=== PATIENT | male | born 1955 | race Caucasian/White ===

== ENCOUNTER 2017-02-08 15:19 | Observation (INO) ==
[2017-02-08] MEDS ORDERED: 0.9 % Sodium Chloride 1,000 ML IVC ONE (15:30)
[2017-02-08] MEDS ORDERED: Ipratropium/Albuterol Neb 3 ML IH ONE (15:30)
--- NOTE | 2017-02-08 15:37 | Emergency Department Note ---
Disposition Clinical Impression: Pneumonia Qualifiers: Pneumonia type: due to unspecified organism Laterality: right Lung location: lower lobe of lung Qualified Code(s): J18.1 - Lobar pneumonia, unspecified organism Disposition: Admitted As Inpatient Condition: Good Referrals: Lois Lindsay CNP [Primary Care Provider] - Forms: ED Satisfaction Letter Time of Disposition: 16:36 SOB HPI - General Chief Complaint: ED Shortness of Breath/Dyspnea Stated Complaint: SOB/ racing heart Source: EMS - History of Present Illness Patient presents today for evaluation of worsening shortness of breath and fever. Patient reports possible aspiration of a kernel of corn approximately one half weeks ago. He has been having increasing cough and shortness of breath since this incident. He was seen last night, had a CT which showed right lower lobe pneumonia. He was sent home on antibiotics and steroids. He presents today secondary to worsening shortness of breath with associated fever. Denies any pain. Denies any other associated symptoms or complaints. - Related Data Home Medications Medication Instructions Recorded Confirmed Aspirin [Adult Low Dose Aspirin EC] 81 mg PO DAILY 08/22/15 02/08/17 Lisinopril [Zestril] 40 mg PO DAILY 08/22/15 02/08/17 Magnesium Oxide [Magnesium] 400 mg PO DAILY 08/22/15 02/08/17 Meloxicam [Mobic] 15 mg PO DAILY 08/22/15 02/08/17 Metoprolol [Lopressor] 25 mg PO DAILY 08/22/15 02/08/17 Montelukast [Singulair] 10 mg PO DAILY 08/22/15 02/08/17 [place]-3/Dha/Epa/Fish Oil [Fish Oil] 1,000 mg PO DAILY 08/22/15 02/08/17 Omeprazole [PriLOSEC] 40 mg PO DAILY 08/22/15 02/08/17 Potassium Chloride [K-Tab ER] 10 meq PO BID 08/22/15 02/08/17 Simethicone [Gas-X] 80 mg PO TID 08/22/15 02/08/17 Tizanidine HCl [Zanaflex] 2 mg PO TID PRN 08/22/15 02/08/17 Zolpidem [Ambien] 10 mg PO HS 08/22/15 02/08/17 metFORMIN [Glucophage] 500 mg PO BIDWM 08/22/15 02/08/17 Albuterol Sulfate [Ventolin Hfa] 2 puff IH Q6H PRN 07/27/16 02/08/17 Bupropion HCl [Wellbutrin Xl] 300 mg PO DAILY 07/27/16 02/08/17 Butalbital/Aspirin/Caffeine 1 each PO Q6H PRN 11/25/16 02/08/17 [Fiorinal 50-325-40 mg Capsule] Cholecalciferol (Vitamin D3) 2,000 unit PO DAILY 11/25/16 02/08/17 [Vitamin D3] Gemfibrozil [Lopid] 600 mg PO BIDWM 11/25/16 02/08/17 Mometasone/Formoterol [Dulera 200 2 puff IH BID 11/25/16 02/08/17 Mcg/5 Mcg Inhaler] Oxycodone HCl/Acetaminophen 1 each PO Q6H PRN 11/25/16 02/08/17 [Percocet 7.5-325 mg Tablet] Oxygen 1 each .ROUTE AD 11/25/16 02/08/17 hydroCHLOROthiazide 25 mg PO DAILY 02/07/17 02/08/17 [Hydrochlorothiazide] Previous Rx's Medication Instructions Recorded Cyclobenzaprine [Flexeril] 10 mg PO TID #15 tablet 11/23/15 Albuterol Sulfate [Albuterol 2 puff IH Q6H #1 puff 02/07/17 Inhaler] PredniSONE [Deltasone] 40 mg PO DAILY #10 tablet 02/07/17 levoFLOXacin [Levaquin] 500 mg PO DAILY #7 tablet 02/07/17 Allergies Allergy/AdvReac Type Severity Reaction Status Date / Time No Known Allergies Allergy Verified 02/07/17 13:03 Constitutional: Reports: fever, chills ENT ED: Denies: congestion, dysphagia Cardiovascular: Denies: chest pain, syncope Respiratory: Reports: cough, dyspnea Gastrointestinal: Denies: abdominal pain, nausea, vomiting, diarrhea Musculoskeletal: Denies: back pain, neck pain Integumentary: Denies: rash Neurological: Denies: headache, weakness, numbness, paresthesias, confusion, abnormal gait Endocrine: Denies: fatigue Hematological/Lymphatic: Denies: lymphadenopathy Past Medical History - Past Medical History Source: patient Medical history: Reports: asthma, COPD, diabetes, GERD, hyperlipidemia, hypertension, other Surgical history: Reports: non-contributory Psychiatric history: Reports: no psych history - Social History Smoking Status: Former smoker Smokeless Tobacco Status: No Alcohol use: Reports: none Drug use: Reports: none Physical Exam - General Limitations: no limitations General appearance: alert, in no apparent distress - Head Head exam: atraumatic, normocephalic, normal inspection - Eye Eye exam: Present: normal appearance, PERRL, EOMI. Absent: scleral icterus - ENT ENT exam: normal exam, normal oropharynx, mucous membranes moist - Respiratory Respiratory exam: Present: other (Rhonchi right base). Absent: respiratory distress, wheezes, accessory muscle use, prolonged expiratory phase - Cardiovascular Cardiovascular exam: Present: regular rate, normal rhythm, normal heart sounds - Abdominal Exam Abdominal exam: Present: soft, Non-Tender, normal bowel sounds. Absent: tenderness, distention, guarding, rebound, rigidity - Extremities Exam Extremities exam: Present: normal inspection, full ROM. Absent: tenderness, pedal edema, calf tenderness - Expanded Lower Extremity Exam Neurovascular/Tendon exam: Present: normal capillary refill - Neurological Exam Neurological exam: Present: alert, oriented X3, CN II-XII intact - Psychiatric Psychiatric exam: Present: normal affect, normal mood - Skin Skin exam: Present: warm, dry, intact, normal color Course Vital Signs Temperature 101.8 F H 02/08/17 15:25 Pulse Rate 107 02/08/17 15:25 Respiratory Rate 15 02/08/17 15:25 Blood Pressure 161/85 02/08/17 15:25 O2 Sat by Pulse Oximetry 93 02/08/17 15:25 Temperature 101.7 F H 02/08/17 16:07 Pulse Rate 110 02/08/17 16:05 Respiratory Rate 20 02/08/17 16:05 Blood Pressure 138/54 02/08/17 16:07 O2 Sat by Pulse Oximetry 97 02/08/17 16:05 Oxygen Delivery Oxygen Delivery Nasal Cannula Shortness of Breath/Dyspnea - Medical Records Medical records reviewed: Yes I reviewed the patient's medical records. Patient will be admitted to the hospitalist service for ongoing evaluation and treatment of presumed aspiration pneumonia failed outpatient treatment - Lab Data Lab results reviewed: Yes I reviewed the patient's lab results. Result diagrams: 02/08/17 15:55 02/08/17 15:55 Lab Results 02/08/17 02/08/17 02/08/17 Range/Units 15:55 15:55 15:55 WBC 12.9 H (4.3-11.1) K/mcL RBC 4.01 L (4.19-5.50) M/mcL Hgb 12.6 L (12.9-16.9) g/dL Hct 37.1 L (37.5-50.1) % MCV 92.5 (83.0-100.0) fL MCH 31.4 (28.0-33.3) pg MCHC 34.0 (31.6-35.5) g/dL RDW 11.9 (11.5-14.5) % Plt Count 341 (140-400) K/mcL MPV 9.6 (9.4-12.4) fL Immature Gran % 0.5 (0-4) % Seg Neutrophils % 86.9 % Lymphocytes % 5.6 % Monocytes % 6.7 % Eosinophils % 0.1 % Basophils % 0.2 % Neutrophils # 11.2 H (1.6-8.9) K/mcL Lymphocytes # 0.7 (0.6-4.6) K/mcL Monocytes # 0.9 (0.0-1.3) K/mcL Eosinophils # 0.0 (0.0-0.6) K/mcL Basophils # 0.0 (0.0-0.2) K/mcL VBG Lactic Acid (0.5-2.2) mmol/L Sodium 137 (136-145) mEq/L Potassium 3.9 (3.5-4.5) mEq/L Chloride 102 (98-109) mEq/L Carbon Dioxide 24 (19-29) mEq/L BUN 15 (8-26) mg/dL Creatinine 1.05 (0.72-1.25) mg/dL Est GFR ( Amer) > 60 (> 60) Est GFR (Non-Af Amer) > 60 (> 60) BUN/Creatinine Ratio 14 (6-26) Glucose 128 H (70-99) mg/dL Calculated Osmolality 286 (280-300) Calcium 9.5 (8.6-10.8) mg/dL Total Bilirubin 0.5 (0.2-1.2) mg/dL Direct Bilirubin 0.2 (0.0-0.5) mg/dL Indirect Bilirubin 0.3 (0.0-1.2) mg/dL AST 14 (5-34) Units/L ALT 16 (0-55) Units/L Alkaline Phosphatase 57 (38-126) Units/L Troponin I 0.00 (0-0.03) ng/mL Serum Total Protein 7.5 (6.0-8.3) g/dL Albumin 3.4 L (3.5-5.0) g/dL Globulin 4.1 H (2.4-3.5) g/dL Albumin/Globulin Ratio 0.8 L (1.1-2.2) 02/08/17 Range/Units 15:55 WBC (4.3-11.1) K/mcL RBC (4.19-5.50) M/mcL Hgb (12.9-16.9) g/dL Hct (37.5-50.1) % MCV (83.0-100.0) fL MCH (28.0-33.3) pg MCHC (31.6-35.5) g/dL RDW (11.5-14.5) % Plt Count (140-400) K/mcL MPV (9.4-12.4) fL Immature Gran % (0-4) % Seg Neutrophils % % Lymphocytes % % Monocytes % % Eosinophils % % Basophils % % Neutrophils # (1.6-8.9) K/mcL Lymphocytes # (0.6-4.6) K/mcL Monocytes # (0.0-1.3) K/mcL Eosinophils # (0.0-0.6) K/mcL Basophils # (0.0-0.2) K/mcL VBG Lactic Acid 1.1 (0.5-2.2) mmol/L Sodium (136-145) mEq/L Potassium (3.5-4.5) mEq/L Chloride (98-109) mEq/L Carbon Dioxide (19-29) mEq/L BUN (8-26) mg/dL Creatinine (0.72-1.25) mg/dL Est GFR ( Amer) (> 60) Est GFR (Non-Af Amer) (> 60) BUN/Creatinine Ratio (6-26) Glucose (70-99) mg/dL Calculated Osmolality (280-300) Calcium (8.6-10.8) mg/dL Total Bilirubin (0.2-1.2) mg/dL Direct Bilirubin (0.0-0.5) mg/dL Indirect Bilirubin (0.0-1.2) mg/dL AST (5-34) Units/L ALT (0-55) Units/L Alkaline Phosphatase (38-126) Units/L Troponin I (0-0.03) ng/mL Serum Total Protein (6.0-8.3) g/dL Albumin (3.5-5.0) g/dL Globulin (2.4-3.5) g/dL Albumin/Globulin Ratio (1.1-2.2) ITS Impressions Chest X-Ray 02/08/17 15:30 IMPRESSION: No acute process. D/ / Francis Longoria MD / Francis Longoria MD Interpreting Provider: Francis Longoria MD - Radiology Data Radiology results reviewed: Yes I reviewed the patient's radiology results. - EKG Data EKG attestation: Yes I reviewed and interpreted this EKG. EKG shows normal: Reports: sinus rhythm Rate: Reports: tachycardia (Sinus tachycardia at a rate of 109. No acute ST segment or T-wave changes)
[2017-02-08 16:03] LABS: Basophils % 0.2 %; Eosinophils % 0.1 %; Hematocrit 37.1 % (37.5-50.1); Hemoglobin 12.6 g/dL (12.9-16.9); Immature Granulocytes % 0.5 % (0-4); Lymphocytes # 0.7 K/mcL (0.6-4.6); Lymphocytes % 5.6 %; Mean Corpuscular Hemoglobin 31.4 pg (28.0-33.3); Mean Corpuscular Volume 92.5 fL (83.0-100.0); Mean Platelet Volume 9.6 fL (9.4-12.4); Monocytes # 0.9 K/mcL (0.0-1.3); Monocytes % 6.7 %; Neutrophils # 11.2 K/mcL (1.6-8.9); Platelet Count 341 K/mcL (140-400); Red Blood Count 4.01 M/mcL (4.19-5.50); Red Cell Distribution Width 11.9 % (11.5-14.5); Segmented Neutrophils % 86.9 %
[2017-02-08 16:22] LABS: Alanine Aminotransferase 16 Units/L (0-55); Albumin 3.4 g/dL (3.5-5.0); Albumin/Globulin Ratio 0.8 (1.1-2.2); Alkaline Phosphatase 57 Units/L (38-126); Aspartate Amino Transferase 14 Units/L (5-34); BUN/Creatinine Ratio 14 (6-26); Bilirubin,Direct 0.2 mg/dL (0.0-0.5); Bilirubin,Indirect 0.3 mg/dL (0.0-1.2); Bilirubin,Total 0.5 mg/dL (0.2-1.2); Blood Urea Nitrogen 15 mg/dL (8-26); Calcium 9.5 mg/dL (8.6-10.8); Carbon Dioxide 24 mEq/L (19-29); Chloride 102 mEq/L (98-109); Globulin 4.1 g/dL (2.4-3.5); Glucose 128 mg/dL (70-99); Osmolality,Calculated 286 (280-300); Potassium 3.9 mEq/L (3.5-4.5); Sodium 137 mEq/L (136-145); Total Protein 7.5 g/dL (6.0-8.3); eGFR For African Americans > 60 (> 60); eGFR For Non-African Americans > 60 (> 60)
[2017-02-08] MEDS ORDERED: Acetaminophen 325 MG TABLET PO PRN (16:37)
[2017-02-08] MEDS ORDERED: Naloxone 0.4 MG/ML INJ IVP PRN (16:37)
[2017-02-08] MEDS ORDERED: *HR* OxyCODONE/APAP 7.5/325 TABLET PO PRN (16:40)
--- NOTE | 2017-02-08 17:40 | Electrocardiograph Report ---
[address] [place], [place] [address] Test Date: 2017-02-08 Pat Name: Tristin Treadwell Department: [id number] Room: [facility] Gender: M Web Master: Jose De Jesus : 1955 Requested By: Anish Barcenas Order Number: [id number] Reading MD: Korina Cook Measurements Intervals [place] Rate: 109 P: 51 MI: 160 QRS: 11 QRSD: 97 T: 45 QT: 312 QTc: 376 Interpretive Statements SINUS TACHYCARDIA ABNORMAL RHYTHM ECG Electronically Signed On 02-08-2017 17:38:22 EDT by Korina Cook
[2017-02-08] MEDS: *HR* Metformin 500 MG TABLET PO SCH (18:34)
[2017-02-09 06:27] LABS: Basophils % 0.4 %; Eosinophils # 0.1 K/mcL (0.0-0.6); Eosinophils % 0.7 %; Hematocrit 35.8 % (37.5-50.1); Hemoglobin 12.1 g/dL (12.9-16.9); Immature Granulocytes % 0.5 % (0-4); Lymphocytes % 20.9 %; Mean Corpuscular HGB Conc 33.8 g/dL (31.6-35.5); Mean Corpuscular Hemoglobin 31.3 pg (28.0-33.3); Mean Corpuscular Volume 92.5 fL (83.0-100.0); Mean Platelet Volume 9.9 fL (9.4-12.4); Monocytes # 1.1 K/mcL (0.0-1.3); Monocytes % 11.3 %; Neutrophils # 6.4 K/mcL (1.6-8.9); Platelet Count 364 K/mcL (140-400); Red Blood Count 3.87 M/mcL (4.19-5.50); Red Cell Distribution Width 12.1 % (11.5-14.5); Segmented Neutrophils % 66.2 %
[2017-02-09 06:28] VITALS: BP 125/75
[2017-02-09 06:43] LABS: BUN/Creatinine Ratio 15 (6-26); Blood Urea Nitrogen 14 mg/dL (8-26); Calcium 9.7 mg/dL (8.6-10.8); Carbon Dioxide 25 mEq/L (19-29); Chloride 104 mEq/L (98-109); Glucose 103 mg/dL (70-99); Osmolality,Calculated 293 (280-300); Potassium 3.4 mEq/L (3.5-4.5); Sodium 141 mEq/L (136-145); eGFR For African Americans > 60 (> 60); eGFR For Non-African Americans > 60 (> 60)
[2017-02-09] MEDS: *HR* Metformin 500 MG TABLET PO SCH (08:32)
[2017-02-09] MEDS ORDERED: hydroCHLOROthiazide 25 MG TABLET PO SCH (09:00)
[2017-02-09] MEDS ORDERED: BuPROPion XL (24 HR) 150 MG TABLET PO SCH (09:00)
[2017-02-09] MEDS ORDERED: Lisinopril 20 MG TABLET PO SCH (09:00)
[2017-02-09] MEDS ORDERED: Aspirin Enteric Coated 81 MG Tablet PO SCH (09:00)
--- NOTE | 2017-02-09 10:07 | Internal Med History&Physical ---
Date of Encounter: 02/09/17 Time of Encounter: 09:30 Assessment and Plan (1) Pneumonia Current visit: Yes Status: Acute Chest CT February 07 showed right lower lobe consolidation. He wishes to be discharged home and I will give him Augmentin and probiotic for 5 days. It was recommended he have repeat chest CT in a few weeks to follow-up on the pneumonia. Qualifiers: Pneumonia type: due to unspecified organism Laterality: right Lung location: lower lobe of lung Qualified Code(s): J18.1 - Lobar pneumonia, unspecified organism (2) Anemia Current visit: Yes Status: Acute He reports daily use of 325 mg aspirin daily. I encouraged him to decrease to 81 mg daily. Qualifiers: Anemia type: unspecified type Qualified Code(s): D64.9 - Anemia, unspecified Internal Medicine - H&P: HPI Chief complaint: Cough and dyspnea Admitted From: Home Plans for Post Hospital Care: Home History of present illness: Mr. Treadwell is a 61 year old male who came to the emergency room stating he had unimproved cough and dyspnea after being treated the evening of February 07 in emergency room and diagnosed with right lower lobe pneumonia. He was found to have a leukocytosis with left shift and it was felt best to admit him to [facility] floor ongoing care needs. He states he got choked eating corn on the cob approximately 10 days earlier. He felt he might have aspirated a particle of corn into his lungs. He has had significant coughing but little productivity since the episode. He denies hemoptysis. His respiratory history is significant for having smoked from age [age] up to 3 packs per day. He has a diagnosis of COPD and wears oxygen at bedtime. He has VESNA and uses CPAP at at bedtime. He states he feels significantly improved now and stable for discharge home. Past Med Surg Social Fam HX - Past Medical History Medical history: asthma, COPD, diabetes, GERD, hyperlipidemia, hypertension, other Psychiatric history: no psych history - Past Surgical History Surgical History: non-contributory - Social History Smoking Status: Former smoker Smokeless Tobacco Status: No Alcohol use: none Drug use: none Internal Medicine - H&P: Meds Aspirin [Adult Low Dose Aspirin EC] 81 mg PO DAILY 08/22/15 [History] Lisinopril [Zestril] 40 mg PO DAILY 08/22/15 [History] Magnesium Oxide [Magnesium] 400 mg PO DAILY 08/22/15 [History] Meloxicam [Mobic] 15 mg PO DAILY 08/22/15 [History] Metoprolol [Lopressor] 25 mg PO DAILY 08/22/15 [History] Montelukast [Singulair] 10 mg PO DAILY 08/22/15 [History] [place]-3/Dha/Epa/Fish Oil [Fish Oil] 1,000 mg PO DAILY 08/22/15 [History] Omeprazole [PriLOSEC] 40 mg PO DAILY 08/22/15 [History] Potassium Chloride [K-Tab ER] 10 meq PO BID 08/22/15 [History] Simethicone [Gas-X] 80 mg PO TID 08/22/15 [History] Tizanidine HCl [Zanaflex] 2 mg PO TID PRN 08/22/15 [History] Zolpidem [Ambien] 10 mg PO HS 08/22/15 [History] metFORMIN [Glucophage] 500 mg PO BIDWM 08/22/15 [History] Cyclobenzaprine [Flexeril] 10 mg PO TID #15 tablet 11/23/15 [Rx] Albuterol Sulfate [Ventolin Hfa] 2 puff IH Q6H PRN 07/27/16 [History] Bupropion HCl [Wellbutrin Xl] 300 mg PO DAILY 07/27/16 [History] Butalbital/Aspirin/Caffeine [Fiorinal 50-325-40 mg Capsule] 1 each PO Q6H PRN [History] Cholecalciferol (Vitamin D3) [Vitamin D3] 2,000 unit PO DAILY 11/25/16 [History] Gemfibrozil [Lopid] 600 mg PO BIDWM 11/25/16 [History] Mometasone/Formoterol [Dulera 200 Mcg/5 Mcg Inhaler] 2 puff IH BID 11/25/16 [ History] Oxycodone HCl/Acetaminophen [Percocet 7.5-325 mg Tablet] 1 each PO Q6H PRN 11/25 [History] Oxygen 1 each .ROUTE AD 11/25/16 [History] Albuterol Sulfate [Albuterol Inhaler] 2 puff IH Q6H #1 puff 02/07/17 [Rx] PredniSONE [Deltasone] 40 mg PO DAILY #10 tablet 02/07/17 [Rx] hydroCHLOROthiazide [Hydrochlorothiazide] 25 mg PO DAILY 02/07/17 [History] levoFLOXacin [Levaquin] 500 mg PO DAILY #7 tablet 02/07/17 [Rx] 3 Allergy/AdvReac Type Severity Reaction Status Date / Time No Known Allergies Allergy Verified 02/07/17 13:03 All Systems PM: A 10-system review of systems was performed and is negative for pertinent findings except as documented above in the HPI. Review of systems: Gen.: He states his weight has been stable past few months Cardiovascular: He has history of hypertension but denies [place] heart failure angina DVT or pulmonary embolus Respiratory: As per history of present illness GI: He has GERD and has been diagnosed with nonalcoholic fatty liver disease. Denies other disorders of his liver gallbladder or exocrine pancreas : He has BPH symptoms with urinary hesitancy. He denies other kidney bladder prostate disorders Neurologic: He denies large distribution strokes or seizures Endocrine: He was diagnosed with DM 2 approximately 2000. He has hyperlipidemia. He denies thyroid disease Hematology/oncology: Denies blood disorders cancers or anemia Psychiatric: He denies anxiety depression or other mental health issues [place] skeletal: He has DJD but denies gout or other bone joint or muscle disorders. - Constitutional Vitals: Temp Pulse Resp BP Pulse Ox 99.1 F 72 18 125/75 96 02/09/17 06:25 02/09/17 06:25 02/09/17 06:25 02/09/17 06:25 02/09/17 06:25 Exam: Gen.: He is well-developed well-nourished male who appears in no acute distress at present time. He had a rare cough during examination HEENT: Head is atraumatic and normocephalic. Eyes: EOMI. There is no scleral icterus. Mouth: Mucosa is moist. Neck: Supple and nontender. There is no thyromegaly or adenopathy noted. Heart: Regular without murmurs gallops or ectopics Lungs: No wheezes crackles or egophony are heard. Abdomen: Soft and nontender. No masses or guarding are noted. Extremities: There is no cyanosis edema or clubbing noted. Dorsalis pedis and posttibial pulses are 1-2 over 2 bilaterally. Neurologic: Mental status: He is talkative and a good historian. Cranial nerves : Smile is symmetric. Forehead wrinkles bilaterally. Tongue protrudes midline. EOMI. Motor: There is no pronator drift. Cerebellar: Finger to nose intact bilaterally. Skin: Warm and dry Internal Med - H&P Results - Labs CBC & Chem 7: 02/09/17 06:02 02/09/17 06:02 Labs: Short CBC 02/09/17 Range/Units 06:02 WBC 9.7 (4.3-11.1) K/mcL Hgb 12.1 L (12.9-16.9) g/dL Hct 35.8 L (37.5-50.1) % Plt Count 364 (140-400) K/mcL Neutrophils # 6.4 (1.6-8.9) K/mcL BMP 02/09/17 06:02 Sodium 141 Potassium 3.4 L Chloride 104 Carbon Dioxide 25 BUN 14 Creatinine 0.92 Glucose 103 H Calcium 9.7
--- NOTE | 2017-02-09 10:25 | Discharge Summary ---
Date of Encounter: 02/09/17 Time of Encounter: 09:30 - Discharge Diagnosis (1) Pneumonia Priority: Primary Status: Acute Qualifiers: Pneumonia type: due to unspecified organism Laterality: right Lung location: lower lobe of lung Qualified Code(s): J18.1 - Lobar pneumonia, unspecified organism (2) Anemia Priority: Secondary Status: Acute Qualifiers: Anemia type: unspecified type Qualified Code(s): D64.9 - Anemia, unspecified - Discharge Medications Prescriptions: Amoxicillin/Clavulanate [Augmentin] 875 mg PO BIDWM #10 tablet Lactobacillus [Culturelle] 1 each PO BID #10 cap.sprink Home Medications: Aspirin [Adult Low Dose Aspirin EC] 81 mg PO DAILY 08/22/15 [History] Lisinopril [Zestril] 40 mg PO DAILY 08/22/15 [History] Magnesium Oxide [Magnesium] 400 mg PO DAILY 08/22/15 [History] Metoprolol [Lopressor] 25 mg PO DAILY 08/22/15 [History] Montelukast [Singulair] 10 mg PO DAILY 08/22/15 [History] [place]-3/Dha/Epa/Fish Oil [Fish Oil Dr 500 mg Softgel] 1,000 mg PO DAILY [History] Omeprazole [PriLOSEC] 40 mg PO DAILY 08/22/15 [History] Potassium Chloride [K-Tab ER] 10 meq PO BID 08/22/15 [History] Simethicone [Gas-X] 80 mg PO TID 08/22/15 [History] Tizanidine HCl [Zanaflex] 2 mg PO TID PRN 08/22/15 [History] Zolpidem [Ambien] 10 mg PO HS 08/22/15 [History] metFORMIN [Glucophage] 500 mg PO BIDWM 08/22/15 [History] Cyclobenzaprine [Flexeril] 10 mg PO TID #15 tablet 11/23/15 [Rx] Albuterol Sulfate [Ventolin Hfa] 2 puff IH Q6H PRN 07/27/16 [History] Bupropion HCl [Wellbutrin Xl] 300 mg PO DAILY 07/27/16 [History] Butalbital/Aspirin/Caffeine [Fiorinal 50-325-40 mg Capsule] 1 each PO Q6H PRN [History] Cholecalciferol (Vitamin D3) [Vitamin D3] 2,000 unit PO DAILY 11/25/16 [History] Gemfibrozil [Lopid] 600 mg PO BIDWM 11/25/16 [History] Mometasone/Formoterol [Dulera 200 Mcg/5 Mcg Inhaler] 2 puff IH BID 11/25/16 [ History] Oxycodone HCl/Acetaminophen [Percocet 7.5-325 mg Tablet] 1 each PO Q6H PRN 11/25 [History] Oxygen 1 each .ROUTE AD 11/25/16 [History] Albuterol Sulfate [Albuterol Inhaler] 2 puff IH Q6H #1 puff 02/07/17 [Rx] hydroCHLOROthiazide [Hydrochlorothiazide] 25 mg PO DAILY 02/07/17 [History] Amoxicillin/Clavulanate [Augmentin] 875 mg PO BIDWM #10 tablet 02/09/17 [Rx] Lactobacillus [Culturelle] 1 each PO BID #10 cap.sprink 02/09/17 [Rx] Meloxicam [Mobic] 15 mg PO DAILY PRN #0 02/09/17 [Rx] Allergies/Adverse Reactions: 3 Allergy/AdvReac Type Severity Reaction Status Date / Time No Known Allergies Allergy Verified 02/07/17 13:03 Date of admission: 02/08/17 16:55 Primary care physician: Lois Lindsay CNP - Patient Status Disposition: Home, Self-Care Condition: Good Functional capacity at discharge: independent ambulation Overall status at discharge: patient is progressing back to baseline - Discharge Instructions Follow Up With: Lois Lindsay CNP [Primary Care Provider] - 1 week - Diet and Activity Activity: resume usual activities as tolerated Diet: advance to your usual diet Hospital course: Mr. Treadwell is a 61 year old male who came to the emergency room stating he had unimproved cough and dyspnea after being treated the evening of February 07 in emergency room and diagnosed with right lower lobe pneumonia. He was found to have a leukocytosis with left shift and it was felt best to admit him [facility] floor ongoing care needs. Initial orders were written by the emergency room physician. I saw him on February 09 and performed the history and physical. When I saw him he stated he felt improved and safe for discharge home. WBC had normalized to 9.7 with resolution of the left shift. I felt he was stable for discharge home. I will prescribe Augmentin and probiotics for 5 days. He will follow with his PCP. I did not feel bronchoscopy was necessary at this time. His PCP can monitor his progress. Repeat CT scan of the chest was recommended on the February 07 CT to ensure clearing of the right lower lobe infiltrate. He will follow with his PCP Lois Lindsay CNP within 1 week. He reported he been taking aspirin 325 mg daily. I recommended he decrease the dose to 81 mg daily. His PCP can monitor his anemia. - Time Spent with Patient Total time spent providing and/or coordinating discharge services: - Constitutional Vitals: Temp Pulse Resp BP Pulse Ox 99.1 F 72 18 125/75 96 02/09/17 06:25 02/09/17 06:25 02/09/17 06:25 02/09/17 06:25 02/09/17 06:25
== END 2017-02-09 11:29 | disposition home or self-care (01) ==
LOC: INPPIK 15:19 → EMEROOPIK 15:19 → INPPIK 17:03
PROVIDERS: ADMIT Internal Medicine; ATTEND Internal Medicine